=== PATIENT | female | born 1995 | race Caucasian/White ===

== ENCOUNTER 2019-08-04 12:32 | Emergency (ER) | payer BC ==
[~2019-08-04] VITALS: Ht 175.3 cm; Wt 113.4 kg
[2019-08-04 14:06] LABS: ABSOLUTE NEUTROPHILS 6.8 thou/uL (1.4-8.2); BASOPHILS 0.7 % (0.0-2.0); EOSINOPHILS 0.8 % (0.0-3.0); HEMATOCRIT 43.2 % (37.0-47.0); LYMPHOCYTES 22.7 % (24.0-44.0); MCH 27.2 pg (26.0-34.0); MCHC 32.5 g/dL (28.0-37.0); MCV 83.7 fL (80.0-100.0); MONOCYTES 6.4 % (1.0-8.0); PLATELET COUNT 295 thou/uL (150-400); POLYS 69.4 % (36.0-66.0); RBC 5.16 mil/uL (4.20-5.00); RDW 14.4 % (10.5-14.5); WBC 9.9 thou/uL (4.0-11.0)
[2019-08-04 14:25] LABS: CALCIUM 9.5 mg/dL (8.5-10.1); CREATININE 0.9 mg/dL (0.6-1.0); POTASSIUM 3.9 mmol/L (3.5-5.1)
[2019-08-04 14:30] LABS: ALBUMIN 4.5 g/dL (3.4-5.0); TOTAL BILIRUBIN 1.1 mg/dL (<0.1-1.0); TOTAL PROTEIN 8.2 g/dL (6.4-8.2)
[2019-08-04] MEDS ORDERED: PHENERGAN 25 MG25 M1 PO (14:47)
[2019-08-04 15:57] VITALS: BP 112/62
--- NOTE | 2019-08-07 08:03 | EKG ---
[facility] [place] [address] ELECTROCARDIOGRAM REPORT Name: AN BIRMINGHAM Room #: DEP [facility]#: [id number] Admission: 08/04/19 Attend Phys: Discharge: 08/04/19 Date of : [birth year] Report #: [id number] THIS REPORT FOR: cc: NO FAMILY PHYSICIAN or PCP FAM - No family physician/PCP Stanislaw Mclaughlin MD [facility] ~ THIS REPORT FOR: //name// [facility] ED Test Date: 2019-08-04 Test Time: 13:06:41 Pat Name: AN BIRMINGHAM Department: Room: Gender: F [place] [employer]: jude : 1995 Requested By: Dai Farmer Order Number: [id number] MD: Stanislaw Mclaughlin Measurements Intervals [place] Rate: 104 P: 56 [place]: 138 QRS: 2 QRSD: 89 T: -1 QT: 327 QTc: 430 Interpretive Statements Sinus tachycardia Otherwise normal No previous ECG available for comparison Electronically Signed On 08-07-2019 8:02:11 CDT by Stanislaw Mclaughlin [email or web address] <ELECTRONICALLY SIGNED> By: Stanislaw Mclaughlin MD, [facility] 08/07/19 [id number] Stanislaw Mclaughlin MD, FAC /EPI
== END 2019-08-04 16:05 | disposition home or self-care (01) ==
LOC: ER 12:32
PROVIDERS: Emergency Medicine
DX: R11.2 Nausea with vomiting, unspecified (principal); B34.9 Viral infection, unspecified; R42 Dizziness and giddiness

== ENCOUNTER 2020-05-12 18:40 | Emergency (ER) | payer BC ==
[~2020-05-12] VITALS: Ht 175.3 cm; Wt 104.3 kg
[~2020-05-12 18:40] MED LIST: PHENERGAN 25 MG25 M1 PO
[2020-05-12] MEDS ORDERED: REMERON15 M1 PO (18:50)
[2020-05-12] MEDS ORDERED: LEXAPRO20 MG PO (18:50)
[2020-05-12 18:54] LABS: URINE BILIRUBIN NEGATIVE (Negative); URINE BLOOD 3+ (Negative); URINE CLARITY SL CLOUDY; URINE COLOR YELLOW; URINE GLUCOSE-RANDOM* NEGATIVE (Negative); URINE KETONES NEGATIVE (Negative); URINE LEUKOCYTES-REFLEX 2+ (Negative); URINE NITRITE-REFLEX NEGATIVE (Negative); URINE PROTEIN (DIPSTICK) TRACE (Negative); URINE SPECIFIC GRAVITY >= 1.030 (1.005-1.035); URINE UROBILINOGEN 0.2 E.U./dl (0.2-1.0)
[2020-05-12 19:03] LABS: SQUAMOUS >10 Many /LPF (0-3)
[2020-05-12 19:04] LABS: BACTERIA-REFLEX >30 Many /HPF (None Seen); CASTS None Seen /LPF (None Seen); CRYSTALS None Seen /LPF (None Seen); URINE WBC-REFLEX >25 Many /HPF (0-5)
[2020-05-12 19:25] LABS: ABSOLUTE NEUTROPHILS 7.3 thou/uL (1.4-8.2); EOSINOPHILS 1.7 % (0.0-3.0); LYMPHOCYTES 30.5 % (24.0-44.0); MCH 26.7 pg (26.0-34.0); MCHC 32.5 g/dL (28.0-37.0); MCV 82.3 fL (80.0-100.0); MONOCYTES 7.1 % (1.0-8.0); PLATELET COUNT 320 thou/uL (150-400); POLYS 59.7 % (36.0-66.0); RBC 4.86 mil/uL (4.20-5.00); RDW 14.1 % (10.5-14.5); WBC 12.2 thou/uL (4.0-11.0)
[2020-05-12 19:28] LABS: CALCIUM 10.3 mg/dL (8.5-10.1); POTASSIUM 3.7 mmol/L (3.5-5.1)
[2020-05-12 19:34] LABS: ALBUMIN 4.4 g/dL (3.4-5.0); TOTAL BILIRUBIN 0.7 mg/dL (0.2-1.0); TOTAL PROTEIN 7.9 g/dL (6.4-8.2)
[2020-05-12] MEDS ORDERED: KEFLEX500 M1 PO (21:40)
[2020-05-12] MEDS ORDERED: PHENAZOPYRIDIN200 M2 PO (21:44)
[2020-05-12] MEDS ORDERED: ONDANSETRON HCL4 M2 PO (21:44)
[2020-05-12 21:46] VITALS: BP 124/76
== END 2020-05-12 21:47 | disposition home or self-care (01) ==
LOC: ER 18:40
PROVIDERS: Physician Assistant
DX: N39.0 Urinary tract infection, site not specified (principal); R11.2 Nausea with vomiting, unspecified; Z90.49 Acquired absence of other specified parts of digestive tract; Z79.899 Other long term (current) drug therapy; Z88.5 Allergy status to narcotic agent